=== PATIENT | male | born 1940 | race Caucasian/White ===

== ENCOUNTER → 2016-04-26 | Outpatient (CLI) | payer MEDICARE, OTHER ==
[2016-04-28 07:06] LABS: TESTOSTERONE FREE (DIRECT) 19.1 pg/mL (6.6-18.1)
== END ==
LOC: OD 07:28
PROVIDERS: ATTEND Urology
DX: E29.1 Testicular hypofunction (principal)
CPT/HCPCS: 36415; 84402; 84403

== ENCOUNTER → 2016-07-24 | Outpatient (CLI) | payer MEDICARE, OTHER ==
[2016-07-25 13:03] LABS: TESTOSTERONE FREE (DIRECT) 17.8 pg/mL (6.6-18.1)
== END ==
LOC: OD 08:39
PROVIDERS: ATTEND Urology
DX: E29.1 Testicular hypofunction (principal)
CPT/HCPCS: 36415; 84402; 84403

== ENCOUNTER → 2016-08-29 | Outpatient (CLI) | payer MEDICARE, OTHER ==
[2016-08-31 07:26] LABS: TESTOSTERONE FREE (DIRECT) 8.5 pg/mL (6.6-18.1)
== END ==
LOC: OD 07:01
PROVIDERS: ATTEND Urology
DX: E29.1 Testicular hypofunction (principal)
CPT/HCPCS: 36415; 84402; 84403

== ENCOUNTER → 2016-12-06 | Outpatient (CLI) | payer MEDICARE, OTHER ==
[2016-12-08 07:25] LABS: TESTOSTERONE FREE (DIRECT) 13.3 pg/mL (6.6-18.1)
== END ==
LOC: OD 07:09
PROVIDERS: ATTEND Urology
DX: E29.1 Testicular hypofunction (principal)
CPT/HCPCS: 36415; 84402; 84403